=== PATIENT | female | born 1980 | race Caucasian/White ===

== ENCOUNTER 2021-10-08 13:55 | Emergency (ER) | payer OTHER, SELFPAY ==
--- NOTE | 2021-10-08 15:57 | ECG_ITS ---
Test Reason : CHEST PAIN Blood Pressure : / mmHG Vent. Rate : 073 BPM Atrial Rate : 073 BPM P-R Int : 154 ms QRS Dur : 078 ms QT Int : 364 ms P-R-T Axes : 083 063 059 degrees QTc Int : 401 ms Normal sinus rhythm Normal ECG No significant changes when compared with the previous EKG of 04 nov 2013 Referred By: Generic ED Physician Electronically Signed By:MAURICIO VILLALOBOS
[2021-10-08 16:06] VITALS: BP 117/43; PULSE 77; RESP 20; TEMP 36; O2SAT 99; BMI 24.5
== END 2021-10-08 20:38 | disposition left against medical advice (07) ==
LOC: HO.ED 20:35
PROVIDERS: Emergency Provider Emergency Medicine
DX: R07.9 Chest pain, unspecified (principal)
CPT/HCPCS: 93005; 99283

== ENCOUNTER 2023-07-11 09:44 | Outpatient (RCR) | payer OTHER, SELFPAY | END 2023-08-09 14:03 | disposition home or self-care (01) | LOC: HO.PT 09:44 | PROVIDERS: PCP Internal Medicine; Visit Provider Student in an Organized Health Care Education/Training Program | DX: M54.50 Low back pain, unspecified (principal); M47.816 Spondylosis without myelopathy or radiculopathy, lumbar region; M79.18 Myalgia, other site | CPT/HCPCS: 97112; 97161 ==

== ENCOUNTER 2025-09-14 09:07 | Outpatient (AMB) | payer OTHER, SELFPAY ==
--- NOTE | 2025-09-14 09:18 | A.OFFVIS_ITS ---
Intake Visit Reasons: follow up migraine Allergies amoxicillin (AMOXICILLIN) Allergy (Mild, Unverified 09/14/25 09:21) ITCH egg (EGGS) Allergy (Mild, Unverified 09/14/25 09:21) VOMITING ibuprofen (From MOTRIN) Allergy (Mild, Unverified 09/14/25 09:21) ABD PAIN, stomach upset sumatriptan Allergy (Unknown, Unverified 09/14/25 09:21) abomnial pain Medication List - Last Reconciled 09/14/25 by Gosia Rebolledo CNP atorvastatin 20 mg PO DAILY galcanezumab-gnlm (Emgality) mg subcut QMONTH metformin ER 500 mg PO DAILY nicotine (polacrilex) 4 mg PO HPI Comments Details: 44-year-old woman with chronic intractable migraine headaches not responsive to multiple oral preventive meds, and some of them she could not take due to other factors. She was doing okay. Migraines were much better with Emgality injections. She would start to get some headaches when next dose was due, but no significant migraines. Sleep was okay. [facility] Medical History (Updated 09/14/25 @ 09:21 by Gosia Rebolledo CNP) Migraine Arthritis Surgical History (Updated 10/08/21 @ 16:08 by Brit Knutson RN) Hx of hysterectomy Tubal ligation status Review of Systems Const Denies chills, Denies daytime sleepiness, Denies difficulty sleeping, Denies fatigue, Denies fever(s), Denies frequent falls, Reports headache(s), Denies increased appetite, Denies poor appetite, Denies snoring, Denies weakness, Denies weight gain and Denies weight loss Eyes Denies loss of vision ENT Denies vertigo, Denies dizziness and Reports headache(s) Card Denies chest pain at rest, Denies chest pain with activity, Denies syncope, Denies leg edema and Denies palpitations Resp Denies snoring GI Denies constipation, Denies heartburn, Denies diarrhea and Denies nausea Denies urinary frequency, Denies urinary incontinence and Denies urinary urgency Musc Denies abnormal gait, Denies numbness and Denies tingling Skin/Breast Denies dry skin and Denies rash Neuro Denies abnormal gait, Denies vertigo, Denies dizziness, Denies syncope, Denies frequent falls, Reports headache(s), Denies lack of coordination, Denies loss of vision, Denies memory loss, Denies numbness, Denies restless legs, Denies seizure-like activity, Denies tingling, Denies paresthesias, Denies tremor(s) and Denies weakness Psych Denies anxiety, Denies depression, Denies auditory hallucinations, Denies memory loss, Denies visual hallucinations and Denies suicidal ideation Endo Denies fatigue and Denies palpitations Physical Exam Const Other: General Appearance:? normal, in no acute distress. Skin:? no rashes, no significant birthmarks. Heart:? S1, S2 normal, no murmurs. Lungs:? clear anteriorly and posteriorly. Extremities:? no edema. Psych:? alert, oriented, cognitive function intact, cooperative with exam. Neuro Other: Mental Status:?Normal attention, orientation, memory and affect.? Cranial Nerves:?Pupils are equal, round and reactive to light. External occular muscles are intact. Visual fine are full. Face is symmetrical. Facial sensations are normal. Tongue is midline. Palate elevates symmetrically. Shoulder shrugging is normal. Hearing to bedside conversation is normal. Sensory Exam:?....? Coordination:?No ataxia,?no titubation.? Gait Exam: Within normal limits. Extrapyramidal System:?No tremor, rigidity with normal facial expressions.? Pronator Drift:?Not present.? Involuntary Movements:?No tremors seen.? Speech:?Normal.? Results Reviewed Results Reviewed[place] [facility] [place] WNL Assessment & Plan Assessment & Plan (1) Migraine: Code(s): G43.909 - Migraine, unspecified, not intractable, without status migrainosus Category: Medical Qualifiers: Migraine type: unspecified Status migrainosus presence: without status migrainosus Intractability: not intractable Qualified Code(s): G43.909 - M igraine, unspecified, not intractable, without status migrainosus Plan: Continue Emgality Solution Prefilled Syringe 120mg/mL subcutaneous monthly. Follow up in 6 months or sooner as needed. Plan Meds tried: topiramate, Depakote, propranolol, verapamil, and tricyclics cannot be given due to low BP. Medications: New galcanezumab-gnlm (Emgality) 120 mg subcut QMONTH 3 mL 1RF 90 days Coding Level of Care Code Est Pt Level 4 (31550) Diagnoses Migraine without status migrainosus, not intractable, unspecified migraine type G43.909 Migraine type: unspecified Status migrainosus presence: without status migrainosus Intractability: not intractable
--- OUTSIDE RECORDS SUMMARY | 2025-09-14 09:59 | XMS_ITS | Data Portability ---
Author Organization [facility], [facility] Address [address] [place] [address] Care Team Providers Care Lapeler Name Role Phone HIM CCA OTHER Assessment Encounter Date Assessment Date Assessment LastModified by Organization Details LastModified Time 06/25/2024 06/25/2024 I provided real -time medical direction via phone for this encounter and was available for additional phone-based assistance as needed. I have reviewed and agree with the Assessment and Plan as documented by the Unemployment Insurance Hearing Officer. Patient given the opportunity to ask questions. Our service contacted for an assessment of: nasal congestion times 3 days As per above, patient evaluated for above. Denies F/C/N/V/CP/DE LA FUENTE and SOB. No sick contacts. Denies cough. No color changes in nasal congestion. Per card runner on the scene, Non-toxic. Stable vitals. No distress. Impression: ? seasonal allergies vs viral URI - differential diagnosis is broad however card runner assessment and limited data are reassuring. Too early in time course to make a diagnosis of bacterial sinusitis. Plan: Observation and conservative care. Stay hydrated. Call PCP for f/u if symptoms worsen or unresolved in approx 2 weeks. Allergies updated to include ibuprofen We discussed the diagnostic uncertainty of home visits and the risk associated with this. In this case, the patient and I felt this to be an acceptable and reasonable amount of risk given the benefit of avoiding an ED visit. We discussed the need to seek care urgently/emergentl y in the setting of any new or worsening serious symptoms, particularly fever chills lightheadedness altered mental status [email or web address] Not available 06/25/2024 10:56:18 Plan of Treatment Reminders Order Date Submit Date Provider Last Modified By Organization Details Last Modified Time Details Appointments None record ed. Lab None record ed. Referral None record ed. Procedures None record ed. Surgeries None record ed. Imaging None record ed. Medication Orders None record ed. Patient TargetsNo targets recorded. Patient InstructionsNo instructions recorded. Reason for Referral None Reported. Medical Equipment None Reported. Allergies Allergen ID Allergen Name Allergen Category Reaction Reaction Severity Criticality Documentation Date Start Date Code Code System Note Provider Name and Address Organization Details Recorded Time 6070 ibuprofen medicatio n Not available Not available Not available 06/25/2024 5640 RxNorm Not Available [facility] - production 4 03:35:01 Medications Name Sig Start Date Stop Date Status Note LastModified by Organization Details LastModified Time atorvastatin 20 mg tablet TAKE 1 TABLET BY MOUTH EVERY DAY active Not Available Not Available No t Available nicotine 14 mg/24 [address] daily transdermal patch PLACE 1 PATCH ONTO THE SKIN EVERY 24 HOURS. active Not Available Not Available No t Available tizanidine 2 mg tablet TAKE 1 TABLET BY MOUTH EVERY 8 HOURS NEEDED. active Not Available Not Available No t Available tizanidine 4 mg tablet TAKE 1 TABLET BY MOUTH EVERYDAY AT BEDTIME active Not Available Not Available No t Available fluconazole 150 mg tablet TAKE 1 TABLET BY MOUTH ONCE FOR 1 DOSE. MAY REPEAT DOSE IF SYMPTOMS NOT RESOLVED IN 72 HOURS active Not Available Not Available No t Available metronidazol e 0.75 % (37.5 mg/5 gram) vaginal gel ONE FULL APPLICATOR INTRAVAGINA LLY, ONCE A DAY FOR 5 DAYS active Not Available Not Available No t Available clotrimazole -betamethaso ne 1 %-0.05 % topical cream APPLY SPARINGLY TO AFFECTED AREA TWICE A DAY FOR UP TO 2 WEEKS active Not Available Not Available No t Available lorazepam 1 mg tablet TAKE 1 TABLET BY MOUTH EVERY DAY NEEDED FOR ANXIETY active Not Available Not Available No t Available zolpidem 10 mg tablet TAKE 1 TABLET BY MOUTH EVERY DAY active Not Available Not Available No t Available metformin ER 500 mg tablet,exten ded release 24 hr TAKE 1 TABLET BY MOUTH EVERY DAY WITH BREAKFAST active Not Available Not Available No t Available bupropion HCl XL 150 mg 24 hr tablet, extended release TAKE 1 TABLET BY MOUTH EVERY DAY active Not Available Not Available No t Available nitrofuranto in monohydrate/ macrocrystal s 100 mg capsule TAKE 1 CAPSULE BY MOUTH TWICE A DAY FOR 5 DAYS active Not Available Not Available No t Available Emgality 120 mg/mL subcutaneous syringe INJECT 1 ML SUBCUTANEOU SLY ONCE MONTHLY active Not Available Not Available No t Available Vitals Date Recorded Heart rate Body weight Oxygen saturation Respiratory rate Body temperature Systolic And Diastolic Provider Name and Address Organization Details Last Updated DateTime 4 76 /min 11106.6 96 g 98 % 16 /min 100 [degF] 108/66 mm[Hg] Not Available [facility] - production 4 09:32:45 Social History None recorded. Functional Status None recorded. Mental Status None recorded. Family History Nothing Reported. Medical History No medical history recorded. Gynecological HistoryNo gynecological history recorded. Obstetrics History GPAL:G 0 P 0 0 0 0 Past Encounters Encounter ID Performer Location Encounter Start Date Encounter Closed Date Diagnosis/Indication Diagnosis SNOMED-CT Code Diagnosis ICD10 Code Diagnosis IMO Codes Diagnosis Note [id number] Jessica Mancia MD [facility] [address] [place] [address] [phone] 06/25/2024 09:32:41 06/25/2024 22:15:58 Nasal congestion 67404870 R09.81 Health Concerns Section Related Observation LastModified by Organization Detai ls LastModified Time None Recorded Concern Status LastModified by Organization Details LastModified Time None Recorded Advance Directives Directive None Recorded Payers Insurance Date Sequence Insurance Name Policy Number Policy Meeks Covered Member ID Meeks Member ID Guarantor Name 06/25/2024 1 [facility] - DOS ON OR AFTER 2023 - DUAL ELIGIBLE - CUSTODIAL OPTIONS AND ONE CARE (MEDICARE REPLACEMENT/ADV ANTAGE - HMO) Kristin Green [id number] Kristin Green Notes Date Note Type Note Provider Name and Address Organization Details Recorded Time 06/25/2024 text/html HPI: My ears feel clogged for the past three days dont wanna go to er ................. ................. ................. ................. ................. ................. ................. ................. ..... [facility] Nurse Triage Notes (Erinn Thornton): Chief Complaints: URI Allergies: Ibuprofen Other Allergies: ibuprofen Comments: [employer] verified the member's name//address and phone number. Member is a 43 yr old female a/o3 PMH >Pre DM, HLD> anxiety Allergies >ibuprofen Pt feeling that she has clogged nasal passage and ears. Pt denies any pain in her ears. Pt denies cough, nose congested but no drainage. Pt has hoarse voice. Pt feeling cold , unsure of a fever. Pt has had symptoms for 3 days. Pt took benadryl but didnt help. Education provided on the response time and the member was advised to monitor reported s/s and seek emergency treatment if needed ................. ................. ................. ................. ................. ................. ................. ................. ..... Unemployment Insurance Hearing Officer Note From Kuldeep Walker: Pt co nasal congestion, and pressure in ears x3 days. Denies pain in ears and chills. . Denies cp sob dizziness,cough , NVD. Denies dark colored mucus. Baseline vitals assessed, Covid and flu swab negative, lungs clear. [facility] contacted and advised self care and Tylenol cold and sinus for symptom relief. Pt advised to monitor symptoms over next few days. Pt advised if symptoms persist to contact pcp or call back [facility] for revisit. Pt education on signs indicating the ER. Unemployment Insurance Hearing Officer Allergies: Ibuprofen ................. ................. ................. ................. ................. ................. ................. ................. ..... Disposition: Fulfilled Jessica Mancia MD [address] [place] [address],[address], [place], [phone], EZEKIEL - LALITHA SANTOS 06/25/2024 10:56:59 OBGyn Episode No OBEpisode recorded.
== END 2025-09-14 09:29 | disposition home or self-care (01) ==
LOC: HO.HSM 09:08
PROVIDERS: PCP Internal Medicine; Visit Provider Registered Nurse
DX: G43.909 Migraine, unspecified, not intractable, without status migrainosus (principal)
CPT/HCPCS: 99214

== ENCOUNTER → 2025-09-14 09:07 | Outpatient (BNVA) | payer OTHER, SELFPAY | PROVIDERS: PCP Internal Medicine; Visit Provider Registered Nurse | DX: G43.909 Migraine, unspecified, not intractable, without status migrainosus (principal); Z79.899 Other long term (current) drug therapy | CPT/HCPCS: 99212 ==